=== PATIENT | female | born 1955 | race Caucasian/White ===

== ENCOUNTER → 2018-04-21 | Outpatient (CLI) | payer OTHER | END | disposition home or self-care (01) | LOC: CFH 13:02 | PROVIDERS: ATTEND Genetic Counselor, MS | DX: Z12.31 Encounter for screening mammogram for malignant neoplasm of breast (principal) | CPT/HCPCS: 77067 ==

== ENCOUNTER → 2020-05-23 | Outpatient (CLI) | payer OTHER | END | disposition home or self-care (01) | LOC: CFH 07:19 | PROVIDERS: ATTEND Genetic Counselor, MS | DX: Z12.31 Encounter for screening mammogram for malignant neoplasm of breast (principal) | CPT/HCPCS: 77063; 77067 ==

== ENCOUNTER → 2021-01-30 | Outpatient (CLI) | payer OTHER ==
[~2021-01-30] MED LIST: ESTR4INS VG; LEVO25TA4 PO; LISI1TAB20 PO; MELO15TA6 PO; SUMA100T3 PO
[2021-01-30 13:57] LABS: MICROSCOPIC NOT IND
[2021-01-30 14:01] LABS: BASOPHILS % (AUTO) 1 % (0-1); EOSINOPHILS % (AUTO) 2 % (1-7); LYMPHOCYTES % (AUTO) 27 % (22-44); MEAN CORPUSCULAR HEMOGLOBIN 30.8 pg (27.0-34.8); MEAN PLATELET VOLUME 8.3 fL (7.4-10.4); MONOCYTES % (AUTO) 7 % (2-9); NEUTROPHILS % (AUTO) 63 % (42-75); PLATELET COUNT 365 x10^3/uL (130-400); RED BLOOD COUNT 4.93 x10^6/uL (3.82-5.3); RED CELL DISTRIBUTION WIDTH 12.4 % (9.6-15.2)
[2021-01-30 14:08] LABS: ALANINE AMINOTRANSFERASE 28 U/L (12-78); ALBUMIN 3.8 g/dL (3.4-5.0); CALCIUM 9.3 mg/dL (8.5-10.1); CREATININE 0.82 mg/dL (0.55-1.02)
[2021-01-30 14:12] LABS: ALKALINE PHOSPHATASE 90 U/L (45-117); BILIRUBIN,TOTAL 0.5 mg/dL (0.2-1.0); TOTAL PROTEIN 7.5 g/dL (6.4-8.2)
[2021-01-30 14:19] LABS: ANION GAP 5 mmol/L (5-15); CHLORIDE 108 mmol/L (98-107)
== END | disposition home or self-care (01) ==
LOC: STAR 12:30
PROVIDERS: ATTEND Obstetrics & Gynecology
DX: Z01.818 Encounter for other preprocedural examination (principal)
CPT/HCPCS: 36415; 71046; 80053; 81003; 84702; 85025; 93005

== ENCOUNTER 2021-02-13 05:40 | Day surgery (SDC) | payer OTHER ==
[~2021-02-13] VITALS: Ht 167.6 cm; Wt 77.9 kg
[2021-02-13] MEDS ORDERED: CHLORHEXIDINE 15 ML UDC ONE (06:35)
[2021-02-13 06:59] LABS: HCG UR SG 1.022 (1.003-1.030)
[2021-02-13] MEDS ORDERED: CHLORHEXIDINE 15 ML UDC PO ONE (07:00)
[2021-02-13] MEDS ORDERED: LACTATED RINGERS 1,000 ML IV SCH (07:00)
[2021-02-13] MEDS ORDERED: MAGNESIUM SULFATE 1 GM/2 ML ONE (07:04)
[2021-02-13] MEDS ORDERED: cloniDINE/PF 100 MCG/ML, 10 ML ONE (07:04)
[2021-02-13] MEDS ORDERED: LABETALOL 5MG/ML, 20ML ONE (07:04)
[2021-02-13] MEDS ORDERED: LIDOCAINE 1%, 20ML ONE (07:04)
[2021-02-13] MEDS ORDERED: GENTAMICIN 80 MG/2 ML ONE (07:05)
[2021-02-13] MEDS ORDERED: FLUORESCEIN SODIUM 500 MG/5 ML ONE (07:05)
[2021-02-13] MEDS ORDERED: BUPIVACAINE 0.25% ONE (07:05)
[2021-02-13] MEDS ORDERED: EPINEPHRINE 1 MG/ML, 1ML ONE (07:06)
[2021-02-13] MEDS ORDERED: VANCOMYCIN 500 MG ONE (07:06)
[2021-02-13] MEDS ORDERED: FENTANYL PF 250 MCG/5ML ONE (07:15)
[2021-02-13] MEDS ORDERED: MIDAZOLAM 1 MG/ML, 5ML ONE (07:15)
[2021-02-13] MEDS ORDERED: CEFAZOLIN 1,000 MG ONE ×2 (07:24)
[2021-02-13] MEDS ORDERED: LIDOCAINE-MPF 2% ,5ML ONE (07:24)
[2021-02-13] MEDS ORDERED: GLYCOPYRROLATE 0.2MG/1ML, 5ML ONE (07:24)
[2021-02-13] MEDS ORDERED: DEXAMETHASONE 4 MG/ML, 1ML ONE (07:24)
[2021-02-13] MEDS ORDERED: PROPOFOL 10 MG/ML, 20ML ONE (07:24)
[2021-02-13] MEDS ORDERED: ROCURONIUM 10MG/ML,5ML ONE (07:25)
[2021-02-13] MEDS ORDERED: VANCOMYCIN 500 MG IVPB ONE (08:05)
[2021-02-13] MEDS ORDERED: ESTROGENS CONJUGATED VAG CRM 0.625MG/1G, 30GM ONE (08:15)
[2021-02-13] MEDS ORDERED: SCOPOLAMINE 1MG PATCH TD ONE (08:49)
[2021-02-13] MEDS ORDERED: METOCLOPRAMIDE 5 MG/ML, 2ML IVPush PRN (09:00)
[2021-02-13] MEDS ORDERED: MEPERIDINE/PF 25MG/0.5ML IVPush PRN (09:00)
[2021-02-13] MEDS ORDERED: DIAZEPAM 5 MG/ML, 2ML IVPush PRN (09:00)
[2021-02-13] MEDS ORDERED: METHOCARBAMOL 1,000 MG in DEXTROSE 5% 100 ML IV PRN (09:00)
[2021-02-13] MEDS ORDERED: LORazepam 2 MG/ML, 1ML IVPush PRN (09:00)
[2021-02-13] MEDS ORDERED: LABETALOL 5MG/ML, 20ML IV PRN (09:00)
[2021-02-13] MEDS ORDERED: MIDAZOLAM 1 MG/ML, 2ML IV PRN (09:00)
[2021-02-13] MEDS ORDERED: ONDANSETRON 2MG/ML, 2ML IVPush PRN (09:00)
[2021-02-13] MEDS ORDERED: HYDROcodone/APAP 7.5-325MG/15ML UDC PO PRN (09:00)
[2021-02-13] MEDS ORDERED: EPHEDRINE 50 MG/ML, 1ML IVPush PRN (09:00)
[2021-02-13] MEDS ORDERED: EPHEDRINE 50 MG/ML, 1ML IM PRN (09:00)
[2021-02-13] MEDS ORDERED: OXYcodone 5 MG/5 ML ORAL.SOL UDC PO PRN (09:00)
[2021-02-13] MEDS ORDERED: HALOPERIDOL 5 MG/ML IV PRN (09:00)
[2021-02-13] MEDS ORDERED: ALBUTEROL/IPRATROPIUM 2.5MG/0.5MG, 3 ML NPPB PRN (09:00)
[2021-02-13] MEDS ORDERED: DIPHENHYDRAMINE 50 MG/ML, 1ML IVPush PRN (09:00)
[2021-02-13] MEDS ORDERED: HYDROmorphone 1 MG/ML, 1ML INJ IVPush PRN (09:00)
[2021-02-13] MEDS ORDERED: hydrALAzine 20 MG/ML, 1ML IV PRN (09:00)
[2021-02-13] MEDS ORDERED: KETOROLAC 30 MG/1 ML ONE (10:38)
[2021-02-13] MEDS: KETOROLAC 30 MG/1 ML IVPush ONE ×2 (10:40→10:44)
[2021-02-13] MEDS ORDERED: FENTANYL PF 100 MCG/2ML ONE (10:53)
[2021-02-13] MEDS: FENTANYL PF 100 MCG/2ML IV PRN ×2 (10:56→11:02)
== END 2021-02-13 15:10 | disposition home or self-care (01) ==
LOC: OUT 05:40
PROVIDERS: ATTEND Obstetrics & Gynecology
DX: N81.3 Complete uterovaginal prolapse (principal); N81.89 Other female genital prolapse; N39.46 Mixed incontinence; N80.0 Endometriosis of uterus; I10 Essential (primary) hypertension; G43.909 Migraine, unspecified, not intractable, without status migrainosus; E03.9 Hypothyroidism, unspecified; Z79.890 Hormone replacement therapy; Z79.899 Other long term (current) drug therapy; Z83.3 Family history of diabetes mellitus; Z81.8 Family history of other mental and behavioral disorders; Z84.1 Family history of disorders of kidney and ureter
CPT/HCPCS: 36415; 57265; 57288; 58260; 81025; 86850; 86900; 88307; C1771; J0171; J0690; J0735; J1100; J1580; J1885; J2250; J2704; J3010; J3370; J3475; J7120